=== PATIENT | female | born 1950 | race Caucasian/White ===

== ENCOUNTER 2020-08-23 21:36 | Emergency (ER) | payer MEDICARE ==
[~2020-08-23] VITALS: Ht 170.2 cm; Wt 72.6 kg
[2020-08-23] MEDS ORDERED: Cleocin HCl300 MG PO (23:43)
[2020-08-23] MEDS ORDERED: IBUP600 PO (23:43)
== END 2020-08-23 23:52 | disposition home or self-care (01) ==
LOC: ER 21:36
DX: K04.7 Periapical abscess without sinus (principal)
CPT/HCPCS: 96372; 99282; A9270; J1885